=== PATIENT | female | born 1990 | race Two or more races ===

== ENCOUNTER 2016-09-30 21:44 | Emergency (ER) | payer SELFPAY ==
[~2016-09-30] VITALS: Ht 165.1 cm; Wt 60.3 kg
[2016-09-30] MEDS ORDERED: fentaNYL PF VIAL 100 MCG/2 ML VIAL ONE (22:11)
[2016-09-30 22:14] LABS: BASO # 0.3 x10^3/uL (0.0-0.2); BASO % 3 % (0-3); EOS % 4 % (0-3); HEMATOCRIT 38.8 % (36.0-47.0); HEMOGLOBIN 12.9 g/dL (12.0-15.5); LYMPH # 2.8 x10^3/uL (1.0-4.8); LYMPH % 26 % (24-48); MEAN CORPUSCULAR HEMOGLOBIN 26 pg (25-35); MEAN CORPUSCULAR HGB CONC 33 g/dL (31-37); MEAN CORPUSCULAR VOLUME 79 fL (79-100); MONO % 5 % (0-9); NEUT % 62 % (31-73); PLATELET COUNT 247 x10^3/uL (140-400); WHITE BLOOD COUNT 10.5 x10^3/uL (4.0-11.0)
[2016-09-30 22:17] LABS: BILIRUBIN,URINE NEGATIVE (NEG); GLUCOSE,URINE NEGATIVE (NEG); NITRITE,URINE NEGATIVE (NEG); PH,URINE 5.5; PROTEIN,URINE NEGATIVE (NEG-TRACE); UROBILINOGEN,URINE 0.2 mg/dL (0.2 mg/dL)
[2016-09-30 22:27] LABS: CALCIUM 8.6 mg/dL (8.5-10.1); CREATININE 0.7 mg/dL (0.6-1.0); POTASSIUM 3.4 mmol/L (3.5-5.1)
[2016-09-30] MEDS ORDERED: IV NORMAL SALINE 1000ML BAG 1,000 ML IV ONE (22:30)
[2016-09-30] MEDS ORDERED: ONDANSETRON PF 4 MG/2 ML VIAL. IV ONE (22:30)
[2016-09-30] MEDS ORDERED: fentaNYL PF VIAL 100 MCG/2 ML VIAL IV ONE (22:30)
[2016-09-30 22:33] LABS: ALBUMIN 3.9 g/dL (3.4-5.0); ALBUMIN/GLOBULIN RATIO 0.9 (1.0-1.7); BACTERIA,URINE FEW /HPF (0-FEW); RBC,URINE OCC /HPF (0-2); SQUAMOUS EPITHELIAL CELL,UR MOD /LPF; TOTAL BILIRUBIN 0.2 mg/dL (0.2-1.0); TOTAL PROTEIN 8.2 g/dL (6.4-8.2); WBC,URINE OCC /HPF (0-4)
[2016-09-30] MEDS ORDERED: KETOROLAC 15 MG/ML VIAL. IV ONE (23:00)
--- NOTE | 2016-09-30 23:29 | RAD ---
EXAM: CT ABDOMEN/PELVIS WITHOUT CONTRAST. HISTORY: Right flank pain. TECHNIQUE: Computed tomography of the abdomen and pelvis was performed without intravenous contrast. COMPARISON: None. FINDINGS: Lung windows through the visualized portions of the bases reveal a calcified right lower lobe granuloma. Bone windows reveal no suspicious lesions. Both kidneys are lobulated consistent with multiple cortical scar is or persistent lobulation. No focal masses appreciated. There are 3 mm calculi bilaterally in the lower poles. There is no hydronephrosis. The gallbladder is packed with stones. There is no pericholecystic fluid. There is no biliary dilatation. The liver, spleen, adrenal glands and pancreas are unremarkable without contrast. There are no pathologically enlarged lymph nodes. The uterus and ovaries are unremarkable by CT. The appendix is not inflamed. There is no obstruction. IMPRESSION: 1. Multiple bilateral renal cortical scars suggests prior ascending infections. Correlate with urinalysis. No hydronephrosis. 2. Small bilateral renal calculi measure 3 mm. No ureteral calculi. 3. Cholelithiasis without evidence of acute cholecystitis by CT. *One or more of the following individualized dose reduction techniques were utilized for this examination: 1. Automated exposure control. 2. Adjustment of the mA and/or kV according to patient size. 3. Use of iterative reconstruction technique. Electronically signed by: Naresh Solomon MD (09/30/2016 11:26 PM) [facility]
--- NOTE | 2016-10-01 00:26 | RAD ---
Abdominal ultrasound right upper quadrant: Reason for examination: Right upper quadrant pain and vomiting for one day. The pancreas is not well visualized due to bowel gas. No abnormality seen at the inferior vena cava. The liver is normal in size at 13.4 cm with no focal lesions. Gallbladder appears to be filled with stones. Gallbladder wall does not appear thickened. Negative Page sign. Common bile duct is normal at 4.1 mm. Right kidney measures 7.9 x 3.8 x 4.1 cm in greatest dimension. There appears to be some cortical scarring. There are echogenic foci consistent with renal stones at the mid to lower pole. No hydronephrosis is seen. Normal vascular flow is seen. IMPRESSION: Cholelithiasis. Right kidney shows some cortical scarring and echogenic foci consistent with renal calculi but no evidence of hydronephrosis is seen. Electronically signed by: Mirian Nolan MD (10/01/2016 12:22 AM) [facility]
[2016-10-01 00:30] VITALS: BP 97/58
[2016-10-01] MEDS ORDERED: HYOS0.1265 SL (00:51)
[2016-10-01] MEDS ORDERED: ONDA4TAB10 SL (00:51)
--- NOTE | 2016-10-01 00:51 | PHYS DOC ---
Past Medical History Past Medical History: No Pertinent History Past Surgical History: Alcohol Use: Occasionally Drug Use: None Adult General Chief Complaint Chief Complaint: ABDOMINAL PAIN HPI HPI Patient is a 26 year old female who presents here today complaining of right upper quadrant pain and started to the morning. Patient denies any fevers shakes chills. Patient denies any vomiting or diarrhea. Patient reports she has been nauseous. Patient denies any dysuria frequency or urgency. Patient reports she has a history of gastritis and gallstones in the past or diagnosed by ultrasound. Patient has any kidney or liver problems. Patient has any kidney stones in the past. Patient has any hypertension or diabetes. Patient denies any lung or heart problems in the past. Patient has had a in the past otherwise no other abdominal surgeries. Patient does not smoke drink or do any drugs. Patient is not allergic to any medications. Patient reports that she has been eating spicy and greasy food over the last couple days. Tonight she reports that the pain was severe and was not able to eat or drink solids. Patient reports she is currently on her menses. Patient reports that the pain is colicky in nature. Pain is not exacerbated with coughing or movement. Patient denies any fevers. Patient's physical exam the ER was significant for tenderness to palpation to her right upper quadrant. Patient has no Page sign. No rebound or guarding. No tenderness at McBurney's point. Patient has normal active bowel sounds. Patient does not present with any signs or symptoms of be consistent with an acute surgical abdomen at this time. Patient's ultrasound revealed a normal-appearing gallbladder wall. No pericolic cystic fluid. There were no gallstones within the gallbladder itself however there is no ductal dilatation. Patient's CT of the abdomen revealed a normal appendix. It did reveal a gallbladder with multiple stones. No evidence of cholecystitis on either the CT scan or the ultrasound. Patient's lab workup is unremarkable. Patient's LFTs lipase WBC count were all within normal limits. Constitutional: Denies fever or chills [] Eyes: Denies change in visual acuity, redness, or eye pain [] HENT: Denies nasal congestion or sore throat [] All other review systems are negative except as documented in the history of present illness portion. Constitutional: Well developed, well nourished, no acute distress, non-toxic appearance. [] HENT: Normocephalic, atraumatic, bilateral external ears normal, oropharynx moist, no oral exudates, nose normal. [] Eyes: PERRLA, EOMI, conjunctiva normal, no discharge. [] Neck: Normal range of motion, no tenderness, supple, no stridor. [] Cardiovascular:Heart rate regular rhythm, Lungs & Thorax: Bilateral breath sounds clear to auscultation [] Abdomen: Bowel sounds normal, soft, tenderness, no masses, no pulsatile masses. [] Skin: Warm, dry, no erythema, no rash. [] Back: No tenderness, no CVA tenderness. [] Extremities: No tenderness, no cyanosis, no clubbing, ROM intact, no edema. [] Neurologic: Alert and oriented X 3, normal motor function, normal sensory function, no focal deficits noted. [] Psychologic: Affect normal, judgement normal, mood normal. [] Assessment and plan: This is a 26-year-old female who presents here today with likely cholelithiasis without evidence of cholecystitis. Patient is clinically and hemodynamically stable. Patient reports the pain isnear completely resolved after fentanyl and Toradol. Patient be discharged home with dietary restrictions Levsin and Zofran. Patient is instructed to follow-up with her primary care physician for referral to an outpatient surgeon for possible outpatient elective cholecystectomy if the pain persists intermittently throughout the next several 1. Current Medications Current Medications Current Medications Medications (Trade) Dose Ordered Sig/Cristy Start Time Stop Time Status Last Admin Dose Admin Fentanyl Citrate (Fentanyl 2ml Vial) 100 mcg STK-MED ONCE 09/30/16 22:11 09/30/16 22:12 DC Ketorolac Tromethamine (Toradol) 30 mg 1X ONCE 09/30/16 23:00 09/30/16 23:01 DC 09/30/16 23:05 30 MG Ondansetron HCl (Zofran) 4 mg 1X ONCE 09/30/16 22:30 09/30/16 22:31 DC 09/30/16 22:13 4 MG Sodium Chloride 1,000 ml @ 1,000 mls/hr 1X ONCE 09/30/16 22:30 09/30/16 23:29 DC 09/30/16 22:13 1,000 MLS/HR Allergies Allergies Allergies Coded Allergies Type Severity Reaction Last Updated Verified No Known Drug Allergies 09/30/16 No Current Patient Data Vital Signs Vital Signs Date Time Temp Pulse Resp B/P (MAP) Pulse Ox O2 Delivery O2 Flow Rate FiO2 09/30/16 23:30 77 104/63 (77) 99 Room Air 09/30/16 22:13 18 09/30/16 21:49 97.9 97.9 Lab Values Laboratory Tests Test 09/30/16 21:06 09/30/16 21:56 POC Urine HCG, Qualitative Hcg negative (Negative) White Blood Count 10.5 x10^3/uL (4.0-11.0) Red Blood Count 4.90 x10^6/uL (3.50-5.40) Hemoglobin 12.9 g/dL (12.0-15.5) Hematocrit 38.8 % (36.0-47.0) Mean Corpuscular Volume 79 fL (79-100) Mean Corpuscular Hemoglobin 26 pg (25-35) Mean Corpuscular Hemoglobin Concent 33 g/dL (31-37) Red Cell Distribution Width 14.0 % (11.5-14.5) Platelet Count 247 x10^3/uL (140-400) Neutrophils (%) (Auto) 62 % (31-73) Lymphocytes (%) (Auto) 26 % (24-48) Monocytes (%) (Auto) 5 % (0-9) Eosinophils (%) (Auto) 4 % (0-3) H Basophils (%) (Auto) 3 % (0-3) Neutrophils # (Auto) 6.5 x10^3uL (1.8-7.7) Lymphocytes # (Auto) 2.8 x10^3/uL (1.0-4.8) Monocytes # (Auto) 0.5 x10^3/uL (0.0-1.1) Eosinophils # (Auto) 0.4 x10^3/uL (0.0-0.7) Basophils # (Auto) 0.3 x10^3/uL (0.0-0.2) H Urine Collection Type Unknown Urine Color Yellow Urine Clarity Clear Urine pH 5.5 Urine Specific [place] >=1.030 Urine Protein Negative mg/dL (NEG-TRACE) Urine Glucose (UA) Negative mg/dL (NEG) Urine Ketones (Stick) Negative mg/dL (NEG) Urine Blood Negative (NEG) Urine Nitrite Negative (NEG) Urine Bilirubin Negative (NEG) Urine Urobilinogen Dipstick 0.2 mg/dL (0.2 mg/dL) Urine Leukocyte Esterase Negative (NEG) Urine RBC Occ /HPF (0-2) Urine WBC Occ /HPF (0-4) Urine Squamous Epithelial Cells Mod /LPF Urine Bacteria Few /HPF (0-FEW) Urine Mucus Marked /LPF Sodium Level 140 mmol/L (136-145) Potassium Level 3.4 mmol/L (3.5-5.1) L Chloride Level 105 mmol/L (98-107) Carbon Dioxide Level 25 mmol/L (21-32) Anion Gap 10 (6-14) Blood Urea Nitrogen 14 mg/dL (7-20) Creatinine 0.7 mg/dL (0.6-1.0) Estimated GFR (Cockcroft-Gault) 102.0 BUN/Creatinine Ratio 20 (6-20) Glucose Level 100 mg/dL (70-99) H Calcium Level 8.6 mg/dL (8.5-10.1) Total Bilirubin 0.2 mg/dL (0.2-1.0) Aspartate Amino Transferase (AST) 15 U/L (15-37) Alanine Aminotransferase (ALT) 20 U/L (14-59) Alkaline Phosphatase 72 U/L (46-116) Total Protein 8.2 g/dL (6.4-8.2) Albumin 3.9 g/dL (3.4-5.0) Albumin/Globulin Ratio 0.9 (1.0-1.7) L Laboratory Tests 09/30/16 21:56 Laboratory Tests 09/30/16 21:56 EKG EKG [] Radiology/Procedures Radiology/Procedures [] Course & Med Decision Making Course & Med Decision Making Pertinent Labs and Imaging studies reviewed. (See chart for details) [] Dragon Disclaimer Dragon Disclaimer This electronic medical record was generated, in whole or in part, using a voice recognition dictation system. Departure Departure Impression: Primary Impression: Cholelithiasis Additional Impression: Abdominal pain Disposition: HOME, SELF-CARE Condition: IMPROVED Referrals: NO PCP (PCP) MIGUE CHAPA MD Patient Instructions: Biliary Colic Additional Instructions: Please follow up with her primary care physician or with Dr. Sun. He is one of our surgeons at the hospital. The phone number has been provided these discharge instructions. Scripts Ondansetron (ZOFRAN ODT) 4 Mg Tab.rapdis 1 TAB SL Q6HRS Y for NAUSEA, #12 TAB Prov: MELCHOR QUIROZ MD 10/01/16 Hyoscyamine Sulfate (LEVSIN-SL) 0.125 Mg Tab.subl 0.125 MG SL Q6-8HRS Y for abdominal cramps, #10 Prov: MELCHOR QUIROZ MD 10/01/16 Problem Qualifiers MELCHOR QUIROZ MD Oct 01, 2016 00:51
== END 2016-10-01 01:02 | disposition home or self-care (01) ==
LOC: ER 21:44
DX: K80.20 Calculus of gallbladder without cholecystitis without obstruction (principal); Z98.890 Other specified postprocedural states
CPT/HCPCS: 36415; 74176; 76705; 80053; 81001; 81025; 85027; 96361; 96374; 96375; 99285; J1885; J2405; J3010; J7030

== ENCOUNTER 2016-10-09 22:55 | Emergency (ER) | payer SELFPAY ==
[~2016-10-09 22:55] MED LIST: HYOS0.1265 SL; ONDA4TAB10 SL
[2016-10-09 23:39] LABS: BASO # 0.1 x10^3/uL (0.0-0.2); BASO % 1 % (0-3); EOS % 4 % (0-3); HEMATOCRIT 36.6 % (36.0-47.0); LYMPH % 36 % (24-48); MEAN CORPUSCULAR HEMOGLOBIN 26 pg (25-35); MEAN CORPUSCULAR HGB CONC 33 g/dL (31-37); MEAN CORPUSCULAR VOLUME 79 fL (79-100); MONO % 6 % (0-9); NEUT % 53 % (31-73); PLATELET COUNT 208 x10^3/uL (140-400); RED BLOOD COUNT 4.61 x10^6/uL (3.50-5.40); RED CELL DISTRIBUTION WIDTH 13.9 % (11.5-14.5); WHITE BLOOD COUNT 8.2 x10^3/uL (4.0-11.0)
[2016-10-09] MEDS ORDERED: IV NORMAL SALINE 1000ML BAG 1,000 ML IV ONE (23:45)
[2016-10-09] MEDS ORDERED: ONDANSETRON PF 4 MG/2 ML VIAL. IV ONE (23:45)
[2016-10-09] MEDS ORDERED: fentaNYL PF VIAL 100 MCG/2 ML VIAL IV ONE (23:45)
--- NOTE | 2016-10-09 23:48 | PHYS DOC ---
Past Medical History Past Medical History: No Pertinent History Past Surgical History: Alcohol Use: Occasionally Drug Use: None Adult General Chief Complaint Chief Complaint: ABDOMINAL PAIN HPI HPI Patient is a 26 year old F who presents with RUQ pain x 3 days. Patient complains of right upper quadrant pain with nausea and vomiting with a history of gallstones. Patient denies any fevers. Patient denies any chest pain shortness of breath. Patient speaks very broken Croatian with Slovenian being her primary language. Patient has no other complaints. Review of Systems Review of Systems GEN: Denies fevers, chills, sweats HEENT: Denies blurred vision, sore throat CV: Denies chest pain RESP: Denies shortness of air, cough GI: RUQ pain with N/V NEURO: Denies confusion, dizziness MSK: Denies weakness, joint pain/swelling Current Medications Current Medications Current Medications Medications (Trade) Dose Ordered Sig/Cristy Start Time Stop Time Status Last Admin Dose Admin Fentanyl Citrate (Fentanyl 2ml Vial) 50 mcg 1X ONCE 10/09/16 23:45 10/09/16 23:46 DC 10/09/16 23:45 50 MCG Ondansetron HCl (Zofran) 4 mg 1X ONCE 10/09/16 23:45 10/09/16 23:46 DC 10/09/16 23:45 4 MG Sodium Chloride 1,000 ml @ 1,000 mls/hr 1X ONCE 10/09/16 23:45 10/10/16 00:44 10/09/16 23:45 1,000 MLS/HR Allergies Allergies Allergies Coded Allergies Type Severity Reaction Last Updated Verified No Known Drug Allergies 09/30/16 No Physical Exam Physical Exam GEN.: No apparent distress. Alert and oriented. HEENT: Head is normocephalic, atraumatic NECK: Supple. LUNGS: CTAB. HEART: RRR, S1, S2 present. Peripheral pulses intact ABDOMEN: Soft, +TTP RUQ with no RB or guarding. Positive bowel sounds. EXTREMITIES: Without any cyanosis. NEUROLOGIC: Normal speech, normal tone PSYCHIATRIC: Normal affect, normal mood. SKIN: No ulcerations Current Patient Data Vital Signs Vital Signs Date Time Temp Pulse Resp B/P (MAP) Pulse Ox O2 Delivery O2 Flow Rate FiO2 10/09/16 23:45 98 Room Air 10/09/16 23:18 98.1 70 114/75 (88) 98.1 Lab Values Laboratory Tests Test 10/09/16 22:17 10/09/16 23:00 10/09/16 23:30 POC Urine HCG, Qualitative Hcg negative (Negative) Urine Collection Type Unknown Urine Color Yellow Urine Clarity Cloudy Urine pH 7.0 Urine Specific [place] 1.020 Urine Protein Negative mg/dL (NEG-TRACE) Urine Glucose (UA) Negative mg/dL (NEG) Urine Ketones (Stick) Negative mg/dL (NEG) Urine Blood Negative (NEG) Urine Nitrite Negative (NEG) Urine Bilirubin Negative (NEG) Urine Urobilinogen Dipstick 0.2 mg/dL (0.2 mg/dL) Urine Leukocyte Esterase Negative (NEG) Urine RBC Occ /HPF (0-2) Urine WBC 1-4 /HPF (0-4) Urine Squamous Epithelial Cells Few /LPF Urine Amorphous Sediment Present /HPF Urine Bacteria 0 /HPF (0-FEW) Urine Mucus Mod /LPF White Blood Count 8.2 x10^3/uL (4.0-11.0) Red Blood Count 4.61 x10^6/uL (3.50-5.40) Hemoglobin 12.0 g/dL (12.0-15.5) Hematocrit 36.6 % (36.0-47.0) Mean Corpuscular Volume 79 fL (79-100) Mean Corpuscular Hemoglobin 26 pg (25-35) Mean Corpuscular Hemoglobin Concent 33 g/dL (31-37) Red Cell Distribution Width 13.9 % (11.5-14.5) Platelet Count 208 x10^3/uL (140-400) Neutrophils (%) (Auto) 53 % (31-73) Lymphocytes (%) (Auto) 36 % (24-48) Monocytes (%) (Auto) 6 % (0-9) Eosinophils (%) (Auto) 4 % (0-3) H Basophils (%) (Auto) 1 % (0-3) Neutrophils # (Auto) 4.3 x10^3uL (1.8-7.7) Lymphocytes # (Auto) 3.0 x10^3/uL (1.0-4.8) Monocytes # (Auto) 0.5 x10^3/uL (0.0-1.1) Eosinophils # (Auto) 0.3 x10^3/uL (0.0-0.7) Basophils # (Auto) 0.1 x10^3/uL (0.0-0.2) Sodium Level 141 mmol/L (136-145) Potassium Level 3.8 mmol/L (3.5-5.1) Chloride Level 106 mmol/L (98-107) Carbon Dioxide Level 30 mmol/L (21-32) Anion Gap 5 (6-14) L Blood Urea Nitrogen 11 mg/dL (7-20) Creatinine 0.6 mg/dL (0.6-1.0) Estimated GFR (Cockcroft-Gault) 121.8 BUN/Creatinine Ratio 18 (6-20) Glucose Level 106 mg/dL (70-99) H Calcium Level 8.4 mg/dL (8.5-10.1) L Total Bilirubin 0.2 mg/dL (0.2-1.0) Aspartate Amino Transferase (AST) 20 U/L (15-37) Alanine Aminotransferase (ALT) 22 U/L (14-59) Alkaline Phosphatase 61 U/L (46-116) Total Protein 7.4 g/dL (6.4-8.2) Albumin 3.6 g/dL (3.4-5.0) Albumin/Globulin Ratio 0.9 (1.0-1.7) L Lipase 130 U/L (73-393) Laboratory Tests 10/09/16 23:30 Laboratory Tests 10/09/16 23:30 EKG EKG [] Radiology/Procedures Radiology/Procedures Ultrasound right upper quadrant: Multiple gallstones seen however no gallbladder wall thickening, no common bile duct dilatation, no pericholecystic fluid no signs of acute cholecystitis [] Course & Med Decision Making Course & Med Decision Making Pertinent Labs and Imaging studies reviewed. (See chart for details) ED course: Patient was seen and examined the emergency room, CBC, CMP, UA, urine , right upper quadrant ultrasound was ordered 0045: On reexamination patient's pain has resolved and patient is asymptomatic. Explained the patient she needs to follow-up to have her gallbladder removed. ED course: MDM: After reviewing the chart, CC/HPI/PMH, physical exam, [lab results], [ radiological results], I do not believe the patient has acute cholecystitis. I believe the patient has bili colic explained the patient that she has multiple gallstones and probably needs her gallbladder out in the near future. Recommended short-term follow-up with her PCP in one to 2 days to have her gallbladder further examined for possible removal. Patient is stable for discharge. Additional verbal discharge instructions were provided to the patient and that if symptoms get worse or any new symptoms arise that are worrisome to the patient she is to return to the emergency room immediately [] Dragon Disclaimer Dragon Disclaimer This electronic medical record was generated, in whole or in part, using a voice recognition dictation system. Departure Departure Impression: Primary Impression: Biliary colic Additional Impression: Right upper quadrant abdominal pain Disposition: HOME, SELF-CARE Condition: IMPROVED Referrals: NO PCP (PCP) Patient Instructions: Biliary Colic Additional Instructions: Please follow up with her family doctor next one to 2 days for further evaluation and management of your gallbladder Problem Qualifiers DANILO DEGROOT DO Oct 09, 2016 23:48
[2016-10-09 23:49] LABS: CALCIUM 8.4 mg/dL (8.5-10.1); CREATININE 0.6 mg/dL (0.6-1.0); GFR 121.8; POTASSIUM 3.8 mmol/L (3.5-5.1)
[2016-10-09 23:54] LABS: BILIRUBIN,URINE NEGATIVE (NEG); GLUCOSE,URINE NEGATIVE (NEG); NITRITE,URINE NEGATIVE (NEG); PROTEIN,URINE NEGATIVE (NEG-TRACE); UROBILINOGEN,URINE 0.2 mg/dL (0.2 mg/dL)
[2016-10-09 23:54] LABS: ALBUMIN 3.6 g/dL (3.4-5.0); ALBUMIN/GLOBULIN RATIO 0.9 (1.0-1.7); TOTAL BILIRUBIN 0.2 mg/dL (0.2-1.0); TOTAL PROTEIN 7.4 g/dL (6.4-8.2)
[2016-10-09 23:58] LABS: BACTERIA,URINE 0 /HPF (0-FEW); RBC,URINE OCC /HPF (0-2); SQUAMOUS EPITHELIAL CELL,UR FEW /LPF
--- NOTE | 2016-10-10 00:10 | RAD ---
Limited abdomen ultrasound HISTORY: Right upper quadrant abdominal pain, history of gallstones. COMPARISON: Abdomen ultrasound September 30, 2016. FINDINGS: Pancreas, aorta and IVC cannot be visualized due to extensive bowel gas shadowing. Normal directional blood flow of the portal vein. Normal liver echogenicity. No liver masses documented. Segments of the upper liver poorly visualized due to rib shadowing. No biliary ductal dilation common bile duct diameter is 3 mm. Extensive shadowing of the gallbladder with wall echo shadow sign due to packed gallbladder filled with stones. No gallbladder wall thickening with a thickness of 1 mm. No pericholecystic fluid or sonographic Page sign. Right renal length 8.7 cm with cortical scarring, no hydronephrosis or gross evidence of a mass although shadowing limits visualization of segments of the right kidney. Spleen and left kidney were not evaluated. IMPRESSION: Gallbladder packed with gallstones. No changes of cholecystitis. No biliary ductal dilation. Stable exam. Electronically signed by: Ayaan Feng MD (10/10/2016 12:06 AM) [id number]
[2016-10-10 01:01] VITALS: BP 99/63
== END 2016-10-10 01:15 | disposition home or self-care (01) ==
LOC: ER 22:55
DX: K80.50 Calculus of bile duct without cholangitis or cholecystitis without obstruction (principal)
CPT/HCPCS: 36415; 76705; 80053; 81001; 81025; 83690; 85027; 96361; 96374; 96375; 99285; J2405; J3010; J7030